=== PATIENT | male | born 1985 | race Caucasian/White ===

== ENCOUNTER 2018-04-06 05:30 | Emergency (ER) | payer OTHER ==
[2018-04-06 05:37] VITALS: BP 146/94
--- NOTE | 2018-04-06 05:39 | ED Physician Documentation ---
PD HPI URI - Stated complaint Stated Complaint: SORE THROAT,COUGH - Chief complaint Chief Complaint: Heent - History obtained from History obtained from: Patient - History of Present Illness Timing - onset: How many days ago (3) Timing duration: Days (3) Timing details: Gradual onset, Still present Associated symptoms: Fever, Chills, Ear pain (right), Sinus pain, Sore throat. No: NVD Contributing factors: No: Sick contact, Travel, COPD / asthma Improves by: Rest. No: Medication (Mucinex without improvement) Worsened by: Activity Similar symptoms before: Has not had sx before Recently seen: Not recently seen Review of Systems Constitutional: reports: Fever, Chills, Myalgias Nose: reports: Rhinorrhea / runny nose, Congestion, Sinus pressure / pain Throat: reports: Sore throat. denies: Oral lesions / sores Cardiac: denies: Chest pain / pressure Respiratory: reports: Cough. denies: Dyspnea, Wheezing GI: reports: Diarrhea (chronically for "years", going loose to watery several times daily. Has no been to PMD about it.). denies: Nausea, Vomiting Skin: denies: Rash Neurologic: reports: Generalized weakness. denies: Altered mental status, Headache PD PAST MEDICAL HISTORY - Past Medical History Cardiovascular: None Respiratory: None Endocrine/Autoimmune: None - Past Surgical History Past Surgical History: No - Present Medications Home Medications: Ambulatory Orders Medication Instructions Recorded Confirmed Amoxicillin 500 mg PO TID #21 capsule 04/06/18 Cetirizine [ZyrTEC] 10 mg PO DAILY #15 tablet 04/06/18 Dexamethasone [Decadron] 4 mg PO DAILY #5 tablet 04/06/18 Ibuprofen 600 mg PO TID PRN #25 tablet 04/06/18 Loperamide HCl [Imodium A-D] 2 mg PO TID PRN #30 tablet 04/06/18 Sertraline HCl [Zoloft] 100 mg PO 04/06/18 - Allergies Allergies/Adverse Reactions: Allergies Allergy/AdvReac Type Severity Reaction Status Date / Time No Known Drug Allergies Allergy Verified 04/06/18 05:37 - Social History Does the pt smoke?: No Smoking Status: Never smoker Does the pt drink ETOH?: Yes Does the pt have substance abuse?: No - Immunizations Immunizations are current?: Yes - POLST Patient has POLST: No PD ED PE NORMAL - Vitals Vital signs reviewed: Yes - General General: Alert and oriented X 3, No acute distress, Well developed/nourished - HEENT HEENT: Ears normal, Pharynx benign, Other (sinus congestion) - Neck Neck: Supple, no meningeal sign, No adenopathy - Cardiac Cardiac: RRR, No murmur - Respiratory Respiratory: Clear bilaterally - Derm Derm: Normal color, Warm and dry - Neuro Neuro: Alert and oriented X 3, No motor deficit, Normal speech Results - Vitals Vitals: Vital Signs - 24 hr 04/06/18 05:35 Temperature 37.7 C H Heart Rate 87 Respiratory 18 Rate Blood Pressure 146/94 H O2 Saturation 97 Oxygen O2 Source Room air PD MEDICAL DECISION MAKING - ED course Complexity details: considered differential, d/w patient Departure - Departure Disposition: 01 Home, Self Care Clinical Impression: Sinusitis Qualifiers: Sinusitis location: unspecified location Chronicity: acute Recurrence: non- recurrent Qualified Code(s): J01.90 - Acute sinusitis, unspecified Condition: Stable Record reviewed to determine appropriate education?: Yes Instructions: ED Sinusitis Abx Tx Follow-Up: CHAU GONZALES [Primary Care Provider] - Prescriptions: Amoxicillin 500 mg PO TID #21 capsule Cetirizine [ZyrTEC] 10 mg PO DAILY #15 tablet Dexamethasone [Decadron] 4 mg PO DAILY #5 tablet Ibuprofen 600 mg PO TID PRN #25 tablet PRN Reason: Pain Loperamide HCl [Imodium A-D] 2 mg PO TID PRN #30 tablet PRN Reason: Diarrhea Comments: Drink lots of fluids. Decadron for inflammation of the sinuses and throat to reduce symptoms and pain. Cetirizine antihistamine to reduce congestion and therefore pressure. Drink lots of fluids. Ibuprofen if needed for pains and fever. Amoxicillin antibiotic 3 times a day for a week as her symptoms sound like there may be some bacterial component to the sinus infection. Add ibuprofen or Tylenol if needed for pains. Rest off work today. Forms: Activity restrictions
[2018-04-06] MEDS ORDERED: CETIRIZINE 10 MG TABLET PO STA (05:55)
[2018-04-06] MEDS ORDERED: DEXAMETHASONE 10 MG/ML VIAL PO STA (05:55)
[2018-04-06] MEDS ORDERED: AMOXICILLIN 250 MG CAPSULE PO STA (05:55)
[2018-04-06] MEDS ORDERED: CHERRY SYRUP 10 ML UDC PO ONE (06:02)
== END 2018-04-06 06:10 | disposition home or self-care (01) ==
LOC: ED 05:30
DX: J01.90 Acute sinusitis, unspecified (principal)
CPT/HCPCS: 99283; A9270